=== PATIENT | male | born 1960 | race Caucasian/White ===

== ENCOUNTER 2024-09-07 06:45 | Day surgery (SDC) | payer BC, SELFPAY ==
[2024-08-27 12:37] VITALS: BMI 33.1
[2024-09-07] VITALS (9 sets, daily range): BP systolic 138–172; BP diastolic 79–103; BMI 33.1
[2024-09-07] MEDS: TYLENOL 1000 MG PO (12:15)
[2024-09-07] MEDS: NORMOSOL-R/PLASMALYTE-A 1000 IV (12:15)
--- NOTE | 2024-09-07 13:54 | OR.RPT ---
Operative Report
Operative Report
Primary Surgeon: Laxmi
Assisting: Kristina DEMPSEY
Pre-op Diagnosis: Umbilical hernia
Post-op Diagnosis: Incarcerated umbilical hernia
Procedure Performed: Robot assisted laparoscopic repair of incarcerated umbilical hernia (rTAPP)
Anesthesia Type: GETA + TAP block
Specimen / Cultures: None
Estimated Blood Loss: 5cc
Complications: None immediate
Operative Findings: 1.5cm defect with incarcerated fat; 11cm x 11cm bard soft mesh
Date of surgery: 09/07/24
Indications:� This 64M developed a symptomatic umbilical hernia. Robot assisted laparoscopic repair was planned.
Description of procedure:� The patient was taken to the operating room and positioned into supine position. The patient�s abdomen was prepped and draped in standard sterile fashion. A time-out was completed verifying correct patient, procedure,
site, positioning, and implants and special equipment prior to beginning this procedure.� The hernia was partially manually reduced after induction. A stab incision was made in the left upper quadrant, a Veress needle was inserted and proper
position was confirmed by aspiration and saline drop test. Following this, pneumoperitoneum was created with insufflation of carbon dioxide to 12 mmHg. Then a 8mm robotic trocar was inserted at the left anterior axillary line at the level of the
umbilicus. The laparoscope was inserted and no injuries were identified in the area. Under direct visualization, the initial trocar was exposed and two 8mm trocars were placed a hand's breadth above and below the initial trocar under direct
visualization.
Attention was turned to the defect. The peritoneum was incised several cm superior to the defect and a peritoneal flap was developed in transverse and caudad directions using blunt and sharp dissection and judicious electrocautery. The defect was
identified and measured 1.5cm. Incarcerated fatty contents were reduced. The defect was closed with 0 PDS stratafix suture. A 11cm x 11cm bard soft mesh was passed into the abdomen. It was placed against the underside of the abdominal wall and
secured in place with 2-0 vicryl sutures at all four corners and assisted along each side. The flap was closed over the mesh and secured with 2-0 monocryl stratafix suture. One small rent on the right edge of the flap was repaired using 2-0 vicryl
suture. A 14g angiocath was used to decompress the preperitoneal space. The flap sealed and suctioned nicely up to the abdominal wall. The mesh did not fold nor curl. A transversus abdominis plane block was then performed under laparoscopic vision
with marcaine/decadron.
After ensuring adequate hemostasis, the trocars were removed and the pneumoperitoneum allowed to escape. The trocar incisions were closed at the skin level using 4-0 monocryl and topical skin adhesive. All counts were correct and the patient
tolerated the procedure well and was taken to the postanesthesia care unit in stable condition.
[2024-09-07] MEDS: DILAUDID 0.5 MG IV (14:15)
== END 2024-09-07 15:52 | disposition home or self-care (01) ==
LOC: SDS 06:45
PROVIDERS: ATTENDING PHYSICIAN Surgery; FAMILY PHYSICIAN Registered Nurse
DX: K42.0 Umbilical hernia with obstruction, without gangrene (principal)
CPT/HCPCS: 49592; 36415; 93005; C1781

== ENCOUNTER → 2025-03-25 10:03 | Outpatient (REF) | payer OTHER, SELFPAY | LOC: RAD 10:03 | PROVIDERS: ATTENDING PHYSICIAN Nurse Practitioner Adult Health; FAMILY PHYSICIAN Registered Nurse | DX: R05.1 Acute cough (principal) | CPT/HCPCS: 71046 ==

== ENCOUNTER → 2025-08-10 09:07 | Outpatient (REF) | payer OTHER, SELFPAY | LOC: RCS 09:07 | PROVIDERS: ATTENDING PHYSICIAN Physician Assistant Medical; FAMILY PHYSICIAN Registered Nurse | DX: I48.0 Paroxysmal atrial fibrillation (principal); R55 Syncope and collapse; R79.89 Other specified abnormal findings of blood chemistry | CPT/HCPCS: 93017; 93350 ==